=== PATIENT | female | born 1980 | race African-American/Black ===

== ENCOUNTER 2017-06-25 18:05 | Inpatient (IN) | payer MEDICAID ==
[2017-06-25] MEDS ORDERED: ATRIPLA TABLET1 TAB PO (18:51)
[2017-06-25] MEDS ORDERED: ULTRAM50 MG PO (18:54)
[2017-06-25] MEDS ORDERED: ZPAK PO (18:54)
[2017-06-25] MEDS ORDERED: PHENERGAN25 M1 PO (18:55)
[2017-06-25] MEDS ORDERED: PROTONIX40 MG PO (18:56)
[2017-06-25] MEDS ORDERED: PHENERGAN6.25 MG/5 PO (18:58)
[2017-06-25 19:52] LABS: BASOPHILS 0.6 % (0-2); EOSINOPHILS 3.6 % (0-7); HEMATOCRIT 40.3 % (36.0-48.0); HEMOGLOBIN 14.2 g/dL (12-16); IMMATURE GRANULOCYTES 0.2 % (0-5); LYMPHOCYTES 38.1 % (15-50); MCH 34.1 pg (26.0-34.0); MCHC 35.2 g/dL (31.0-37.0); MCV 96.6 fL (80.0-100.0); MEAN PLATELET VOLUME 11.1 fL (7.4-10.4); MONOCYTES 8.4 % (2-11); NEUTROPHILS 49.1 % (40-80); PLATELET COUNT 197 10x3/uL (130-400); RBC 4.17 10x6/uL (4.00-5.40); RDW 12.2 % (11.5-14.5); WBC 6.2 10x3/uL (4.8-10.8)
[2017-06-25 19:56] VITALS: BP 111/56
[2017-06-25 20:15] LABS: ALKALINE PHOSPHATASE 82 U/L (46-116); ALT (SGPT) 37 U/L (10-68); AMYLASE - SERUM 66 U/L (25-115); BILIRUBIN - TOTAL 0.23 mg/dL (0.2-1.3); CALC OSMOLALITY 274 mosm/kg (275-300); CALCIUM 9.4 mg/dL (8.5-10.1); CARBON DIOXIDE 28.4 mmol/L (21.0-32.0); CHLORIDE - SERUM 104 mmol/L (98-107); CREATININE - SERUM 0.7 mg/dL (0.6-1.3); GLUCOSE 82 mg/dL (74-106); LIPASE 83 U/L (73-393); POTASSIUM - SERUM 3.3 mmol/L (3.5-5.1); PROTEIN - SERUM 7.8 g/dL (6.4-8.2); SODIUM 139 mmol/L (136-145); UREA NITROGEN 8 mg/dL (7-18); eGFR NON AFRICAN AMERICAN > 90 mL/min (90-120)
--- NOTE | 2017-06-25 20:15 | NUR ---
AWAKE,ALERT.CHEIF COMPLAINTS OF HEACACHE AND NAUSEA. PERCOCET GIVEN ORDERED. HIGH. RESP EVEN AND UNALBORED. CL IN REACH.
--- NOTE | 2017-06-25 22:12 | NUR ---
IV SITED TO LEFT HAND X 2 ATTEMPT. GOOD BLOOD RETURN. FLUSHES W/O DIFFICULTY. 22G. PT TOLERATED WELL. BED IN LOWEST POSITION. CALL LIGHT IN REACH.
[2017-06-25 23:56] VITALS: BP 101/59
--- NOTE | 2017-06-26 00:45 | NUR ---
PATIENT IS RESTING QUIETLY WITH EYES CLOSED. NO SIGNS OF DISTRESS NOTED. BED IN LOWEST POSITION, CALL LIGHT IN REACH. BED RIALS UP X'S 2.
[2017-06-26 04:00] VITALS: BP 96/57
[2017-06-26 04:32] VITALS: BMI 21.3
--- NOTE | 2017-06-26 05:25 | NUR ---
RESTING QUIETLY. NO DISTRESS NOTED. CL IN REACH
[2017-06-26 05:43] LABS: BASOPHILS 0.7 % (0-2); EOSINOPHILS 3.9 % (0-7); HEMATOCRIT 39.8 % (36.0-48.0); HEMOGLOBIN 14.1 g/dL (12-16); IMMATURE GRANULOCYTES 0.2 % (0-5); LYMPHOCYTES 39.6 % (15-50); MCH 33.9 pg (26.0-34.0); MCHC 35.4 g/dL (31.0-37.0); MCV 95.7 fL (80.0-100.0); MEAN PLATELET VOLUME 11.3 fL (7.4-10.4); MONOCYTES 10.9 % (2-11); NEUTROPHILS 44.7 % (40-80); PLATELET COUNT 207 10x3/uL (130-400); RBC 4.16 10x6/uL (4.00-5.40); RDW 12.2 % (11.5-14.5)
[2017-06-26 06:08] LABS: ALBUMIN 3.3 g/dL (3.4-5.0); ALKALINE PHOSPHATASE 64 U/L (46-116); ALT (SGPT) 31 U/L (10-68); CALC OSMOLALITY 279 mosm/kg (275-300); CARBON DIOXIDE 23.9 mmol/L (21.0-32.0); CHLORIDE - SERUM 107 mmol/L (98-107); CREATININE - SERUM 0.7 mg/dL (0.6-1.3); GLUCOSE 95 mg/dL (74-106); POTASSIUM - SERUM 3.4 mmol/L (3.5-5.1); PROTEIN - SERUM 6.8 g/dL (6.4-8.2); SODIUM 141 mmol/L (136-145); UREA NITROGEN 9 mg/dL (7-18); eGFR NON AFRICAN AMERICAN > 90 mL/min (90-120)
--- NOTE | 2017-06-26 07:00 | NUR ---
REPORT RECIEVED FROM OFF GOING NURSE. SEE FLOW SHEET FOR ASSESSMENT. C/O PHOTOPHOBIA. REMAINS NPO FOR LUMBAR PUNTCURE. PRN PERCOCET GIVEN FOR GENERLIZED PAIN. "IT HURTS IN MY HEAD AND RADIATES TO MY LEGS.CALL LIGHT INR EACH. WILL CONT POC.
[2017-06-26 07:49] LABS: INR 1.06 (0.85-1.17); PROTIME 13.6 SECONDS (11.6-15.0)
[2017-06-26 08:30] VITALS: BP 104/61
--- NOTE | 2017-06-26 08:40 | NUR ---
Patient Name: NEELIMA IQBAL Admission Status: Elective Accout number: [id number] Admission Date: 06-25-2017 : 1980 Admission Diagnosis: Attending: Jerald STRICKLAND Current LOS: 1 Anticipated DC Date: 06-30-2017 Planned Disposition: Home Primary Insurance: MEDICAID [place] Discharge Planning Comments: CM MET WITH PATIENT REGARDING D/C NEEDS AND PLANS. PATIENT STATED SHE LIVES ALONE AND HER BOYFRIEND (XAVIER) OR FRIEND (MS. MOODY) WILL DRIVE HER HOME AT DISCHARGE. PATIENT STATED SHE IS INDEPENDENT WITH HER CARE AND HAS NO DME AT HOME. PATIENT STATED SHE HAS NO PCP BUT IS SEEING DR. STRICKLAND. PATIENT USES [facility] ON [facility] IN [place]. PATIENT STATED SHE DOES NOT NEED HOME HEALTH AND WILL RETURN HOME AT DISCHARGE. CM WILL CONTINUE TO FOLLOW PATIENT WITH D/C NEEDS AND PLANS. PCP NONE SEEING DR. STRICKLAND AT THIS TIME [email or web address] [place] [address] [phone] Cabinet Builder: Prudence Sneed Is the patient Alert and Oriented? Yes 0 * How many steps to enter\exit or inside your home? 1 FLIGHT 0 * PCP NONE SEEING DR. STRICKLAND 0 * Pharmacy [facility] IN [place] [facility] 0 * Preadmission Environment Home Alone 0 * ADLs Independent 0 * Equipment None 0 * List name and contact numbers for known caregivers / representatives who currently or will assist patient after discharge: XAVIER WEEKS (BOYFRIEND) [phone] MS. MOODY [phone] * Community resources currently utilized None 0 * Additional services required to return to the preadmission environment? Yes 0 * Can the patient safely return to the preadmission environment? Yes 0 * Has this patient been hospitalized within the prior 30 days at any hospital? No 0 Grand Total: 0
--- NOTE | 2017-06-26 09:04 | NUR ---
CONSENT FOR LUMBAR PUNCTAR SIGNED AND IN CHART
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
[2017-06-26 11:12] LABS: GLUCOSE - CSF 59 MG/DL (40-75); PROTEIN - CSF 35 MG/DL (12-60)
[2017-06-26 11:20] LABS: APPEARANCE - CSF COLORLESS; RBC - CSF 12 cmm (0-0)
[2017-06-26 11:45] LABS: APPEARANCE HAZY (CLEAR); BILIRUBIN NEGATIVE (NEGATIVE); COLOR STRAW (YELLOW); GLUCOSE NEGATIVE (NEGATIVE); KETONE SMALL mg/dL (NEGATIVE); NITRITE NEGATIVE (NEGATIVE); PROTEIN NEGATIVE (NEGATIVE); UROBILINOGEN NORMAL (NORMAL)
--- NOTE | 2017-06-26 12:00 | NUR ---
SUMATRIPTAN GIVEN FOR HEADACHE. EFFECTIVE. CALL LIGHT IN REACH. WILL CONT POC.
[2017-06-26 12:13] VITALS: BP 112/66
[2017-06-26 14:47] VITALS: BMI 21.3
--- NOTE | 2017-06-26 18:00 | NUR ---
REPORT GIVEN TO OFF GOING NURSE. PT BREATHING NORMALLY AND UNLABORED. CALL LIGHT IN REACH. WILL CONT POC
[2017-06-26 20:00] VITALS: BP 106/59
[2017-06-27] VITALS: BP 93/47
[2017-06-27 04:00] VITALS: BP 105/61
--- NOTE | 2017-06-27 07:55 | NUR ---
PT AOX4 RESP EVEN AND NONLABORED PT DENIES NEEDS AT THIS TIME IV TO RIGHT HAND PATENT AND INTACT AT THIS TIME SRX2 BED AT LOWEST SETTING CALL LIGHT WITHIN REACH WILL CONTINUE TO MONITOR
[2017-06-27 08:02] LABS: BASOPHILS 0.5 % (0-2); EOSINOPHILS 3.2 % (0-7); HEMATOCRIT 39.4 % (36.0-48.0); HEMOGLOBIN 13.8 g/dL (12-16); IMMATURE GRANULOCYTES 0.3 % (0-5); LYMPHOCYTES 27.3 % (15-50); MCH 33.7 pg (26.0-34.0); MCV 96.3 fL (80.0-100.0); MEAN PLATELET VOLUME 10.7 fL (7.4-10.4); MONOCYTES 8.8 % (2-11); NEUTROPHILS 59.9 % (40-80); PLATELET COUNT 182 10x3/uL (130-400); RBC 4.09 10x6/uL (4.00-5.40); WBC 5.9 10x3/uL (4.8-10.8)
[2017-06-27 08:29] LABS: CALC OSMOLALITY 278 mosm/kg (275-300); CALCIUM 8.6 mg/dL (8.5-10.1); CARBON DIOXIDE 24.3 mmol/L (21.0-32.0); CHLORIDE - SERUM 109 mmol/L (98-107); CREATININE - SERUM 0.6 mg/dL (0.6-1.3); GLUCOSE 93 mg/dL (74-106); POTASSIUM - SERUM 3.6 mmol/L (3.5-5.1); SODIUM 141 mmol/L (136-145); UREA NITROGEN 7 mg/dL (7-18); eGFR NON AFRICAN AMERICAN > 90 mL/min (90-120)
[2017-06-27 08:50] VITALS: BP 110/65
[2017-06-27 13:03] VITALS: BP 100/68
[2017-06-27 13:15] LABS: FUNGUS STAIN Final report (())
[2017-06-27 16:45] VITALS: BP 105/69
[2017-06-27 20:00] VITALS: BP 98/61
[2017-06-28] VITALS: BP 90/53
[2017-06-28 04:00] VITALS: BP 101/60
[2017-06-28 05:14] LABS: RAPID PLASMA REAGIN Non Reactive (Non Reactive)
[2017-06-28 06:26] LABS: BASOPHILS 0.2 % (0-2); EOSINOPHILS 2.5 % (0-7); HEMATOCRIT 37.2 % (36.0-48.0); HEMOGLOBIN 13.2 g/dL (12-16); IMMATURE GRANULOCYTES 0.2 % (0-5); LYMPHOCYTES 25.8 % (15-50); MCH 34.3 pg (26.0-34.0); MCHC 35.5 g/dL (31.0-37.0); MCV 96.6 fL (80.0-100.0); MEAN PLATELET VOLUME 10.8 fL (7.4-10.4); MONOCYTES 9.5 % (2-11); NEUTROPHILS 61.8 % (40-80); PLATELET COUNT 174 10x3/uL (130-400); RBC 3.85 10x6/uL (4.00-5.40); RDW 12.2 % (11.5-14.5)
[2017-06-28 06:29] LABS: WBC 8.1 10x3/uL (4.8-10.8)
[2017-06-28 06:51] LABS: CALC OSMOLALITY 280 mosm/kg (275-300); CALCIUM 8.5 mg/dL (8.5-10.1); CARBON DIOXIDE 25.8 mmol/L (21.0-32.0); CHLORIDE - SERUM 110 mmol/L (98-107); CREATININE - SERUM 0.6 mg/dL (0.6-1.3); GLUCOSE 93 mg/dL (74-106); POTASSIUM - SERUM 3.8 mmol/L (3.5-5.1); SODIUM 142 mmol/L (136-145); T4 THYROXIN - FREE 0.94 ng/dL (0.76-1.46); THYROID STIMULATING HORMONE 0.89 uIU/mL (0.36-3.74); UREA NITROGEN 6 mg/dL (7-18); eGFR NON AFRICAN AMERICAN > 90 mL/min (90-120)
[2017-06-28 13:10] LABS: BASOS 1 % (Not Estab.); CD4 - % CD4 POS. LYMPH 36.3 % (30.8-58.5); CD4 - ABSOLUTE CD4 HELPER 617 /uL (359-1519); EOS 3 % (Not Estab.); EOS (ABSOLUTE) 0.2 x10E3/uL (0.0-0.4); HEMATOCRIT 40.1 % (34.0-46.6); HEMOGLOBIN 13.7 g/dL (11.1-15.9); LYMPHS 29 % (Not Estab.); LYMPHS (ABSOLUTE) 1.7 x10E3/uL (0.7-3.1); MCH 33.8 pg (26.6-33.0); MCHC 34.2 g/dL (31.5-35.7); MCV 99 fL (79-97); MONOCYTES 8 % (Not Estab.); MONOCYTES (ABSOLUTE) 0.5 x10E3/uL (0.1-0.9); NEUTROPHILS 59 % (Not Estab.); NEUTROPHILS (ABSOLUTE) 3.6 x10E3/uL (1.4-7.0); PLATELETS 206 x10E3/uL (150-379); RBC 4.05 x10E6/uL (3.77-5.28); RDW 12.8 % (12.3-15.4)
[2017-06-28 13:15] VITALS: BP 117/76
--- NOTE | 2017-06-28 15:15 | NUR ---
PATIENT IS AWAKE, ALERT, AND ORIENTED X4. PATIENT RESTING IN HER BED. CALL LIGHT IN PATIENT'S REACH. PATIENT DENIES ANY NEEDS AT PRESENT TIME. WILL MONITOR.
[2017-06-28 16:33] VITALS: BP 106/66
[2017-06-28 20:00] VITALS: BP 119/63
[2017-06-29 00:18] VITALS: BP 99/56
[2017-06-29 04:34] VITALS: BP 99/58
[2017-06-29 08:43] VITALS: BP 107/57
[2017-06-29 16:49] VITALS: BP 108/58
[2017-06-29 20:00] VITALS: BP 105/63
[2017-06-30] VITALS (7 sets, daily range): BP systolic 96–110; BP diastolic 45–61
[2017-06-30 05:36] LABS: BASOPHILS 0.4 % (0-2); EOSINOPHILS 3.1 % (0-7); HEMATOCRIT 34.6 % (36.0-48.0); HEMOGLOBIN 12.2 g/dL (12-16); IMMATURE GRANULOCYTES 0.1 % (0-5); LYMPHOCYTES 37.2 % (15-50); MCH 33.6 pg (26.0-34.0); MCHC 35.3 g/dL (31.0-37.0); MCV 95.3 fL (80.0-100.0); MEAN PLATELET VOLUME 11.2 fL (7.4-10.4); MONOCYTES 9.9 % (2-11); NEUTROPHILS 49.3 % (40-80); PLATELET COUNT 187 10x3/uL (130-400); RBC 3.63 10x6/uL (4.00-5.40); WBC 6.7 10x3/uL (4.8-10.8)
[2017-06-30 06:05] LABS: CALC OSMOLALITY 281 mosm/kg (275-300); CALCIUM 8.6 mg/dL (8.5-10.1); CARBON DIOXIDE 23.4 mmol/L (21.0-32.0); CHLORIDE - SERUM 110 mmol/L (98-107); CREATININE - SERUM 0.7 mg/dL (0.6-1.3); GLUCOSE 97 mg/dL (74-106); POTASSIUM - SERUM 3.6 mmol/L (3.5-5.1); SODIUM 143 mmol/L (136-145); eGFR NON AFRICAN AMERICAN > 90 mL/min (90-120)
[2017-06-30 06:07] LABS: UREA NITROGEN 3 mg/dL (7-18)
[2017-06-30 10:10] LABS: HIV-1 RNA BY PCR <20 (())
[2017-06-30 11:12] LABS: CRYPTOCOCCUS AG - SERUM Negative (Negative)
[2017-06-30 11:12] LABS: CRYPTO AG - CSF Negative (Negative)
--- NOTE | 2017-06-30 15:50 | NUR ---
NUTRITION F/U CHART REVIEWED. PT VISITING WITH MD. LUNCH TRAY REMAINS AT BEDSIDE. GOOD INTAKE MOST MEALS.NOTE DC PLANNING FOR TOMORROW. RD FOLLOWING
--- NOTE | 2017-06-30 19:50 | NUR ---
A&O, DENIES NEEDS, NO DISTRESS NOTED, CALL LIGHT IN REACH, BED LOWEST POSITION, WILL CONTINUE TO MONITOR
--- NOTE | 2017-06-30 22:30 | NUR ---
PT SHOWERING, LINENS CHANGED
--- NOTE | 2017-06-30 23:05 | NUR ---
STATES PAIN IS A 10 AFTER SHOWERING, PERCOCET 10 GIVEN, WILL CONTINUE TO MONITOR
--- NOTE | 2017-07-01 00:31 | NUR ---
PT RESTING WITH EYES CLOSED, RESPIRATIONS EQUAL AND UNLABORED. DENIES ANY NEEDS AT THIS TIME. CALL LIGHT IN REACH.
--- NOTE | 2017-07-01 00:50 | NUR ---
PT GIVEN MORPHINE FOR PAIN, PT STATES PERCOCET DID NOT HELP WITH HEADACHE, WILL CONTINUE TO MONITOR
--- NOTE | 2017-07-01 02:36 | NUR ---
SLEEPING, NO DISTRESS NOTED, BREATHING EVEN UNLABORED
[2017-07-01 04:00] VITALS: BP 118/61
--- NOTE | 2017-07-01 05:06 | NUR ---
SLEEPING, NO DISTRESS NOTED, BREATHING EVEN UNLABORED, WILL CONTINUE TO MONITOR
[2017-07-01 08:15] VITALS: BP 118/57
[2017-07-01 11:57] VITALS: BP 122/68
--- NOTE | 2017-07-01 12:00 | NUR ---
PT EXPRESSES WISHES TO GO HOME TODAY STATES THAT DR STRICKLAND SAID YESTERDAY SHE COULD POTENTIALLY DISCHARGE TODAY WILL AWAIT ORDER.
[2017-07-01] MEDS ORDERED: DEPAKOTE500 MG PO (13:24)
[2017-07-01] MEDS ORDERED: PROTONIX40 MG PO (13:25)
[2017-07-01] MEDS ORDERED: REGLAN5 MG PO (13:25)
[2017-07-01] MEDS ORDERED: MAXALT5 MG PO (13:28)
--- NOTE | 2017-07-01 14:57 | NUR ---
CM REASSESSMENT NOTE: PATIENT IS DISCHARGING HOME TODAY/ NO NEEDS FOR D/C PER PATIENT/ MS. KENDAL (PATIENTS FRIEND) IS PICKING HER UP.
[2017-07-01 16:51] VITALS: BP 123/60
--- NOTE | 2017-07-01 17:29 | NUR ---
PT DIOSCHARGED AT THIS TIME EXPRESSED UNDERSTANDING OF DISCHARGE INSTRUCTIONS. FLU VACCINE GIVEN RIGHT DELTOID
[2017-07-02 03:10] LABS: OVA + PARASITE EXAM Final report (())
[2017-07-03 20:09] LABS: HSV 1 DNA (PCR) Negative (Negative); HSV 2 DNA (PCR) Negative (Negative)
[2017-07-05 03:10] LABS: EBV PCR CSF Negative (Negative)
--- NOTE | 2017-07-18 14:14 | EC ---
PATIENT:NEELIMA IQBAL DATE OF SERVICE: 06/25/17 SEX: F MEDICAL RECORD: [id number] DATE OF : [birth year] LOCATION:[facility] AGE OF PATIENT: 36 ADMISSION DATE: 06/25/17 REFERRING PHYSICIAN: INTERPRETING PHYSICIAN: BOLIVAR BRIDGES MD ECHOCARDIOGRAM REPORT ECHO CHARGES 4 ECHO COMPLETE CLINICAL DIAGNOSIS: VENCES ECHOCARDIOGRAPHIC MEASUREMENTS (adult normal given) AC root (d.<3.7cm) 2.3 cm LV Septum d (<1.2 cm> 0.90 cm Valve Excursion 1.5 cm LV Septum (systole) 1.3 cm Left Atria (s.<4.0cm> 3.1 cm LVPW d(<1.2cm) 1.2 cm RV (d.<2.3cm) 3.7 cm LVPW (sytole) 1.3 cm LV diastole(<5.6CM) 4.4 cm MV E-F(>70mm/sec) cm LV systole 2.8 cm LVOT Diameter 1.6 cm MV exc.(>10mm) 1.3 cm Est.ejection fraction (50-75%) % Pericardial Effusion N DOPPLER: LVIT cm/sec A 60 cm/sec E 92.0 cm/sec LA cm/sec RVSP 23 mmHg LVOT 113 cm/sec AOP1/2T m/s Asc. Ao 138 cm/sec RVOT 82 cm/sec RA cm/sec PA 97 cm/sec AV Gradient Peak 5.17 mmHg AV Mean 2.93 mmHg AV Area 1.6 cm MV Gradient Peak 6.10 mmHg MV Mean 1.84 mmHg MV Area cm COMMENTS: Barrel Cutter: David HERCULES Solid Waste Manager: 1 Dr. Bridges TAPE# PACS DATE OF SERVICE: 06/29/2017 PROCEDURE: Echocardiogram FINDINGS: 1. Left ventricular chamber size is within normal limits. Left ventricular systolic function is normal. Overall ejection fraction estimated at 60%. 2. Left atrium is within normal limits at 3.1 cm. Right atrium and right ventricular chamber sizes are within normal limits. 3. Valvular structures have normal structure and motion. ECHOCARDIOGRAM REPORT [id number] NEELIMA IQBAL 4. Doppler interrogation reveals trace to mild mitral regurgitation, mild tricuspid regurgitation, no other valvular insufficiency or stenosis. Pulmonary systolic pressure is normal estimated at 23 mmHg. 5. No evidence of pericardial effusion or left ventricular thrombus. TRANSINT:[id number] Voice Confirmation ID: [id number] DOCUMENT ID: [id number] 07/02/2017 Edited to correct date of service, [email or web address]. BOLIVAR BRIDGES MD at 1414 CC: [id number] DICTATION DATE: 06/30/17 1241 COPIER FIELD SERVICE TECHNICIAN: 06/30/17 1411 DIS IN 07/01/17 [place] [id number] [place] [id number]
[2017-07-24 06:13] LABS: FUNGUS MYCOLOGY CULTURE Final report (())
[2017-08-15 15:21] LABS: ACID FAST CULTURE Negative (())
== END 2017-07-01 17:32 | disposition home or self-care (01) | DRG 976 ==
LOC: D.MS 18:05
PROVIDERS: Internal Medicine Gastroenterology; Specialist; ADMIT Student in an Organized Health Care Education/Training Program
PROC: 009U3ZX Drainage of Spinal Canal, Percutaneous Approach, Diagnostic (ICD-10-PCS; principal; 2017-06-26)
PROC: B01B1ZZ Fluoroscopy of Spinal Cord using Low Osmolar Contrast (ICD-10-PCS; 2017-06-26)
PROC: 0DB98ZX Excision of Duodenum, Via Natural or Artificial Opening Endoscopic, Diagnostic (ICD-10-PCS; 2017-06-27)
PROC: 0DB68ZX Excision of Stomach, Via Natural or Artificial Opening Endoscopic, Diagnostic (ICD-10-PCS; 2017-06-27)
PROC: 0DB28ZX Excision of Middle Esophagus, Via Natural or Artificial Opening Endoscopic, Diagnostic (ICD-10-PCS; 2017-06-27)
PROC: 0DB38ZX Excision of Lower Esophagus, Via Natural or Artificial Opening Endoscopic, Diagnostic (ICD-10-PCS; 2017-06-27)
DX: B20 Human immunodeficiency virus [HIV] disease (principal); A81.2 Progressive multifocal leukoencephalopathy; R51 Headache; Z91.19 Patient's noncompliance with other medical treatment and regimen; K29.60 Other gastritis without bleeding; R13.10 Dysphagia, unspecified; I08.1 Rheumatic disorders of both mitral and tricuspid valves; K31.84 Gastroparesis

== ENCOUNTER → 2017-09-05 08:23 | Outpatient (CLI) | payer MEDICAID ==
[~2017-09-05 08:23] MED LIST: ATRIPLA TABLET1 TAB PO; DEPAKOTE500 MG PO; MAXALT5 MG PO; PHENERGAN25 M1 PO; PHENERGAN6.25 MG/5 PO; PROTONIX40 MG PO; REGLAN5 MG PO; ULTRAM50 MG PO; ZPAK PO
== END | disposition home or self-care (01) ==
LOC: D.MRI 08-04 11:00
DX: R51 Headache (principal)